=== PATIENT | female | born 1965 | race Caucasian/White ===

== ENCOUNTER 2019-05-07 09:46 | Emergency (ER) | payer BC ==
--- NOTE | 2019-05-07 11:39 | EDM.PDOCBH ---
ED HPI GENERAL MEDICAL PROBLEM - General Chief Complaint: Behavioral/Psych Stated Complaint: MENTAL EVAL Time Seen by Provider: 05/07/19 11:05 Source of Information: Reports: Patient, RN Notes Reviewed History Limitations: Reports: No Limitations - History of Present Illness INITIAL COMMENTS - FREE TEXT/NARRATIVE: Patient is a 54-year-old female who presents to the ED for a mental health evaluation. The patient notes she has a history of depression, and is on Lexapro, which has recently been increased to 20 mg daily, roughly 4 weeks ago. The patient relates that she has been under an immense amount of stress from work, and life. She states that she lost her suddenly due to a heart attack last year, and has recently lost her father in the past month or 2. 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 She realizes that she is failing at her job, and she states that something needs to break, and the job is the only thing that can go to help keep her from a mental break. She does have a psychologist that she works with. She states that she does have some weight loss, but this is intentional due to eating healthier, she states that she is sleeping well, she denies any suicidal thoughts or plan, she does not have any auditory or visual hallucinations or homicidal ideations. She denies any other sick-like symptoms. States she is in decent health, and is also getting her blood pressure under control. - Related Data Allergies Allergy/AdvReac Type Severity Reaction Status Date / Time No Known Allergies Allergy Verified 05/07/19 10:29 Home Meds: Home Meds Enalapril [Vasotec] 20 mg PO DAILY 05/07/19 [History] Escitalopram [Lexapro] 20 mg PO DAILY 05/07/19 [History] Pramipexole [Mirapex] 0.5 mg PO BEDTIME 05/07/19 [History] Past Medical History HEENT History: Reports: Impaired Vision Cardiovascular History: Reports: Hypertension Psychiatric History: Reports: Depression Social & Family History - Tobacco Use Smoking Status *Q: Never Smoker ED ROS GENERAL - Review of Systems Review Of Systems: See Below Constitutional: Denies: Fever, Chills Respiratory: Denies: Shortness of Breath Cardiovascular: Denies: Chest Pain GI/Abdominal: Denies: Abdominal Pain, Nausea, Vomiting Neurological: Denies: Headache Psychiatric: Reports: Depression. Denies: Hallucinations, Homicidal Ideation, Mood Lability, Suicidal Ideation ED EXAM, BEHAVIORAL HEALTH - Physical Exam Exam: See Below Exam Limited By: No Limitations General Appearance: Alert, WD/WN, No Apparent Distress Eye Exam: Bilateral Eye: EOMI, Normal Inspection, PERRL Ears: Normal External Exam Nose: Normal Inspection Throat/Mouth: Normal Inspection, Normal Lips, Normal Teeth, Normal Gums, Normal Oropharynx, Normal Voice, No Airway Compromise Head: Atraumatic, Normocephalic Neck: Normal Inspection Respiratory/Chest: No Respiratory Distress, Lungs Clear, Normal Breath Sounds, No Accessory Muscle Use, Chest Non-Tender Cardiovascular: Normal Peripheral Pulses, Regular Rate, Rhythm, No Edema, No Murmur GI/Abdominal: Normal Bowel Sounds, Soft, Non-Tender, No Distention, No Mass Extremities: Normal Inspection, Normal Capillary Refill Neurological: Alert, Normal Mood/Affect, Normal Cognition, Normal Gait, Normal Reflexes, No Motor/Sensory Deficits, Oriented x 3 Psychiatric: Alert, Normal Affect, Normal Cognition, Normal Mood, Oriented, Depressed Mood, Tearful (when talking about the deaths of her /father). No: Flat Affect, Homicidal Thoughts, Moravian Delusions, Suicidal Plan, Suicidal Thoughts, Tangential Thoughts, Auditory Hallucinations, Visual Hallucinations, Pressured Speech, Threatening Behavior Skin Exam: Warm, Dry, Intact, Normal color, No rash COURSE, BEHAVIORAL HEALTH COMP - Course Vital Signs: Last Vital Signs Temp 97.9 F 05/07/19 10:26 Pulse 90 05/07/19 10:26 Resp 16 05/07/19 10:26 BP 159/98 H 05/07/19 10:26 Pulse Ox 98 05/07/19 10:26 Discharge vs Psych Eval/Treatment:: 05/07/19 11:33 Patient presents to the ER for a mental health evaluation. Patient has no symptoms other than depression. She is sleeping well, she has been losing weight, intentionally, she states she is eating healthier. Due to the patient's story, and recounted history, I do believe she is suffering from increased mental stress at this time. I will provide her with a note for an extended leave of absence from work, so she cannot try to get her affairs in order. She will need to be reevaluated by primary care and her psychologist before she can be deemed fit to return to work. Departure - Departure Time of Disposition: 11:35 Disposition: Home, Self-Care 01 Condition: Fair Clinical Impression: Depressive disorder - Discharge Information *PRESCRIPTION DRUG MONITORING PROGRAM REVIEWED*: No *COPY OF PRESCRIPTION DRUG MONITORING REPORT IN PATIENT RIMMA: No Instructions: Living With Depression Referrals: Dmitry Ogden MD [Primary Care Provider] - Forms: ED Department Discharge, ED Return to Work/School Form Additional Instructions: You were evaluated in the ER today regarding a mental health evaluation. You are not suicidal, or homicidal. You are having trouble coping with your regular daily activities and work related issues. A work release was given to you, to help facilitate your ARGELIA. Recommend that you work closely with your primary care, and psychologist/psychiatrist, to help get your mental health back in check. In order to go back to work, you will need to be released by your primary care and psychiatrist when they believe your fit for work again. Please return to the ER at any time if your symptoms change or worsen.
== END 2019-05-07 12:00 | disposition home or self-care (01) ==
LOC: JD.ED 09:46
DX: F32.9 Major depressive disorder, single episode, unspecified (principal); I10 Essential (primary) hypertension; Z79.899 Other long term (current) drug therapy
CPT/HCPCS: 99282

== ENCOUNTER 2020-09-26 16:08 | Emergency (ER) | payer BC, OTHER ==
--- NOTE | 2020-09-26 16:31 | EDM.PDOC ---
ED HPI GENERAL MEDICAL PROBLEM - General Chief Complaint: Cardiovascular Problem Stated Complaint: HIGH BLOOD PRESSURE Time Seen by Provider: 09/26/20 16:31 Source of Information: Reports: Patient History Limitations: Reports: No Limitations - History of Present Illness INITIAL COMMENTS - FREE TEXT/NARRATIVE: 55-year-old female presents to the ED due to a headache associated with very high blood pressure. [place] when she started to feel unwell. Patient has a primary history of hypertension and is controlled primarily with Vasotec 20 mg once daily. She reports that she was started on several different antihypertensive medications which she found intolerable particularly all of the diuretics particularly the thiazide diuretics. She does states her headache is currently a 6-7 out of 10 and is generalized in both frontal cortices and temporal scalp scalp and behind her eyes. Associated mild nausea. She denies any visual acuity changes. Denies any problems with her gait. Blood pressure at the cabin was 232/114. Initial blood pressure here was 232/121. States she has had occasional spikes of blood pressure this high in the past. She does not know she is ever underwent any investigations for secondary causes of hypertension such as pheochromocytoma. She is concerned at present that she is hypothyroid as many of her siblings and her mother and aunts are hypertensive. She states she is cold all the time. She has been putting on weight. She feels her skin is belt conveyor drier and scalier than normal. She is losing some hair. She has not taken any analgesic for her headache. Onset: Today Duration: Hour(s): (With a mild headache this morning.), Constant, Getting Worse Location: Reports: Generalized (Identified very high blood pressure earlier this afternoon which precipitated her to drive in from the [place] to [employer] or [place].) Quality: Reports: Ache, Throbbing (Headache), Other Severity: Moderate (Pounding. 7-8 out of 10.) Improves with: Reports: None Worsens with: Reports: Movement Context: Reports: Other. Denies: Activity, Exercise, Lifting, Sick Contact, Trauma Associated Symptoms: Reports: Headaches, Loss of Appetite, Malaise, Nausea/Vomiting. Denies: Confusion (Spontaneous occurrence gradual.), Chest Pain, Cough, cough w sputum, Diaphoresis, Fever/Chills, Rash, Seizure, Shortness of Breath, Syncope (Mild nausea associate with a headache.), Weakness Treatments RECOVERER: Reports: Other (see below) (Only her regular medications.) Headache Pain Score (Numeric/FACES): 7 - Related Data Allergies Allergy/AdvReac Type Severity Reaction Status Date / Time furosemide [From Lasix] Allergy Diarrhea Verified 09/26/20 16:13 Home Meds: Home Meds Enalapril [Vasotec] 20 mg PO DAILY 05/07/19 [History] Pramipexole [Mirapex] 0.5 mg PO BEDTIME 05/07/19 [History] Glycopyrrolate/Formoterol Fum [Bevespi Aerosphere Inhaler] 2 puff INH BID 09/26/20 [History] Montelukast Sodium [Singulair] 10 mg PO BEDTIME 09/26/20 [History] amLODIPine [Norvasc] 5 mg PO DAILY #15 tab 09/26/20 [Rx] Past Medical History HEENT History: Reports: Impaired Vision, Sinusitis Cardiovascular History: Reports: Hypertension Respiratory History: Reports: Asthma Gastrointestinal History: Reports: Chronic Constipation Genitourinary History: Reports: None [employer] RECONDITIONING History: Reports: Musculoskeletal History: Reports: Other (See Below) Other Musculoskeletal History: disc replaced in neck Neurological History: Reports: None Psychiatric History: Reports: Depression Endocrine/Metabolic History: Reports: None Hematologic History: Reports: None Immunologic History: Reports: None Oncologic (Cancer) History: Reports: None Dermatologic History: Reports: None - Infectious Disease History Infectious Disease History: Reports: Chicken Pox - Past Surgical History Head Surgeries/Procedures: Reports: None Female Surgical History: Reports: Hysterectomy Social & Family History - Family History Family Medical History: No Pertinent Family History Cardiac: Reports: CAD, [place] Neurological: Reports: CVA Oncologic: Reports: Colon - Tobacco Use Tobacco Use Status *Q: Never Tobacco User - Caffeine Use Caffeine Use: Reports: Coffee - Recreational Drug Use Recreational Drug Use: No - Living Situation & Occupation Living situation: Reports: Single Occupation: Employed ED ROS GENERAL - Review of Systems Review Of Systems: See Below Constitutional: Reports: Malaise, Fatigue, Decreased Appetite. Denies: Fever, Chills HEENT: Reports: Glasses (Reports that she does have impaired vision.), Other Respiratory: Reports: Shortness of Breath. Denies: Wheezing, Pleuritic Chest Pain, Cough, Sputum (On exertion at times.), Hemoptysis Cardiovascular: Reports: Blood Pressure Problem, Dyspnea on Exertion, Edema (Occasional lower extremity edema.). Denies: Chest Pain, Claudication, Ligh theadedness, Orthopnea, Palpitations (Occasionally.) Endocrine: Reports: Fatigue GI/Abdominal: Reports: Constipation (L.), Decreased Appetite (Day.) : Reports: No Symptoms Musculoskeletal: Reports: Joint Pain (Knees hips low back neck at times) Skin: Reports: Other (She appreciates skin is been kind of dry and scaly lately. Appreciates mild hair loss.) Neurological: Reports: Headache. Denies: Confusion, Dizziness, Paresthesia, Pre-Existing Deficit, Seizure, Syncope, Tremors, Trouble Speaking, Difficulty Walking, Weakness, Change in Speech, Gait Disturbance, Other Psychiatric: Reports: No Symptoms Hematologic/Lymphatic: Reports: No Symptoms Immunologic: Reports: No Symptoms ED EXAM, GENERAL - Physical Exam Exam: See Below Exam Limited By: No Limitations General Appearance: Alert, WD/WN, No Apparent Distress, Other (Temperature is 36.2 degrees. Heart rate 66 and sinus respiratory of 18 with pulse oximetry of 98% on room air BP initially was 232/121. It subsequently came down to 224/116.) Eye Exam: Bilateral Eye: A-V [place] (Thought there was mild AV nicking bilaterally. No papilledema), Normal Fundi, Normal Inspection (No scleral icterus or blepharal pallor.), PERRL Throat/Mouth: Normal Inspection, Normal Lips, Normal Teeth, Normal Oropharynx Head: Atraumatic, Normocephalic Neck: Normal Inspection, Supple, Non-Tender, Full Range of Motion, Thyromegaly (A palpable right lower lobe of her thyroid on examination no nodules appreciated). No: Carotid Bruit, Lymphadenopathy (L), Lymphadenopathy (R) Respiratory/Chest: No Respiratory Distress, Lungs Clear, Normal Breath Sounds, No Accessory Muscle Use Cardiovascular: Normal Peripheral Pulses, Regular Rate, Rhythm, No Edema, No Gallop, No JVD, No Murmur, No Rub Peripheral Pulses: 2+: Posterior Tibial (L), Posterior Tibial (R), Dorsalis Pedis (L), Dorsalis Pedis (R), 3+: Carotid (L), Carotid (R) GI/Abdominal: Normal Bowel Sounds, Soft, Non-Tender, No Organomegaly, No Mass, Pelvis Stable, Other (Mildly obese.). No: Guarding, Rigid, Rebound Back Exam: Normal Inspection, Full Range of Motion. No: CVA Tenderness (L), CVA Tenderness (R) Extremities: Normal Inspection, Normal Range of Motion, Non-Tender, No Pedal Edema Neurological: Alert, Oriented, CN II-XII Intact, Normal Cognition, Normal Gait Psychiatric: Normal Affect, Normal Mood Skin Exam: Warm, Dry, Intact, Normal Color, No Rash #1 Interpretation EKG Date: 09/26/20 Time: 17:20 Rhythm: NSR Rate (Beats/Min): 70 Corder: Normal P-Wave: Enlarged (Left atrial hypertrophy) QRS: Other (Early R wave transition consider septal hypertrophy pattern.) ST-T: Other (Initial poor R wave progression T wave inversion V1 nonspecific finding) EKG Interpretation Comments: Borderline ECG Course - Vital Signs Last Recorded V/S: Last Vital Signs Temp 36.2 C 09/26/20 16:19 Pulse 71 09/26/20 18:09 Resp 18 09/26/20 17:30 BP 162/86 H 09/26/20 18:09 Pulse Ox 100 09/26/20 17:30 - Orders/Labs/Meds Orders: Active Orders 24 hr Category Date Time Status EKG Documentation Completion [RC] STAT Care 09/26/20 17:05 Active Peripheral IV Care [RC] . DIRECTED Care 09/26/20 16:41 Active FREE T3 [REF] Stat Lab 09/26/20 16:50 Received Sodium Chloride 0.9% [Saline Flush] Med 09/26/20 16:40 Active 10 ml FLUSH ASDIRECTED PRN Peripheral IV Insertion Adult [OM.PC] Stat Oth 09/26/20 16:41 Ordered Medication Orders Sodium Chloride (Sodium Chloride 0.9% 10 Ml Syringe) 10 ml FLUSH ASDIRECTED PRN PRN Reason: Keep Vein Open Last Admin: 09/26/20 17:03 Dose: 10 ml Documented by: CONCHA Labs: Laboratory Tests 09/26/20 09/26/20 09/26/20 Range/Units 16:50 16:50 16:55 WBC 7.02 (3.98-10.04) K/mm3 RBC 4.52 (3.98-5.22) M/mm3 Hgb 13.9 (11.2-15.7) gm/dl Hct 41.7 (34.1-44.9) % MCV 92.3 (79.4-94.8) fl MCH 30.8 (25.6-32.2) pg MCHC 33.3 (32.2-35.5) g/dl RDW Std Deviation 42.9 (36.4-46.3) fL Plt Count 235 (182-369) K/mm3 MPV 11.0 (9.4-12.3) fl Neut % (Auto) 58.2 (34.0-71.1) % Lymph % (Auto) 29.3 (19.3-51.7) % [place] % (Auto) 8.0 (4.7-12.5) % Eos % (Auto) 3.7 (0.7-5.8) Baso % (Auto) 0.7 (0.1-1.2) % Neut # (Auto) 4.08 (1.56-6.13) K/mm3 Lymph # (Auto) 2.06 (1.18-3.74) K/mm3 Kinney # (Auto) 0.56 H (0.24-0.36) K/mm3 Eos # (Auto) 0.26 (0.04-0.36) K/mm3 Baso # (Auto) 0.05 (0.01-0.08) K/mm3 Sodium 143 (136-145) mEq/L Potassium 4.0 (3.5-5.1) mEq/L Chloride 105 (98-107) mEq/L Carbon Dioxide 29 (21-32) mEq/L Anion Gap 13.0 (5-15) BUN 13 (7-18) mg/dL Creatinine 0.8 (0.55-1.02) mg/dL Est Cr Clr Drug Dosing 71.50 mL/min Estimated GFR (MDRD) > 60 (>60) mL/min BUN/Creatinine Ratio 16.3 (14-18) Glucose 86 (74-106) mg/dL Calcium 9.8 (8.5-10.1) mg/dL Total Bilirubin 0.5 (0.2-1.0) mg/dL AST 21 (15-37) U/L ALT 32 (14-59) U/L Alkaline Phosphatase 103 (46-116) U/L Total Protein 7.5 (6.4-8.2) g/dl Albumin 4.0 (3.4-5.0) g/dl Globulin 3.5 gm/dL Albumin/Globulin Ratio 1.1 (1-2) Free T4 1.02 (0.76-1.46) ng/dL TSH 3rd Generation 2.210 (0.358-3.74) uIU/mL Urine Color Yellow (Yellow) Urine Appearance Clear (Clear) Urine pH 7.0 (5.0-8.0) Ur Specific [place] 1.025 (1.005-1.030) Urine Protein Negative (Negative) Urine Glucose (UA) Negative (Negative) Urine Ketones Negative (Negative) Urine Occult Blood Negative (Negative) Urine Nitrite Negative (Negative) Urine Bilirubin Negative (Negative) Urine Urobilinogen 0.2 (0.2-1.0) Ur Leukocyte Esterase Negative (Negative) Urine RBC 0-5 (0-5) /hpf Urine WBC 0-5 (0-5) /hpf Ur Squamous Epith Cells 0-5 (0-5) /hpf Urine Bacteria Few (FEW) /hpf Urine Mucus Not seen (FEW) /hpf Meds: Medications Generic Name Dose Route Start Last Admin Trade Name Freq PRN Reason Stop Dose Admin Sodium Chloride 10 ml 09/26/20 16:40 09/26/20 17:03 Sodium Chloride 0.9% 10 Ml Syringe FLUSH 10 ml ASDIRECTED PRN Administration Keep Vein Open Discontinued Medications Generic Name Dose Route Start Last Admin Trade Name Freq PRN Reason Stop Dose Admin Amlodipine Besylate 10 mg 09/26/20 16:42 09/26/20 17:02 Amlodipine 10 Mg Tab PO 09/26/20 16:43 10 mg ONETIME ONE Administration Hydromorphone HCl 0.5 mg 09/26/20 17:54 09/26/20 18:30 Hydromorphone 0.5 Mg/0.5 Ml Syringe IVPUSH 09/26/20 17:55 0.5 mg ONETIME ONE Administration Labetalol HCl 20 mg 09/26/20 16:41 09/26/20 17:05 Labetalol 100 Mg/20 Ml Mdv IVPUSH 09/26/20 16:42 20 mg ONETIME ONE Administration Protocol Ondansetron HCl 4 mg 09/26/20 17:54 09/26/20 18:28 Ondansetron 4 Mg/2 Ml Sdv IVPUSH 09/26/20 17:55 4 mg ONETIME ONE Administration - Radiology Interpretation Free Text/Narrative:: 55-year-old female presents to the ED with complaints of markedly elevated blood pressure appreciated earlier this [place]c. She reports she had a mild headache this morning and it did seem to worsen as the day went on. Blood pressure at the cabin was 232/116. Initial blood pressure here was 232/123. She reports she has had intermittent elevated blood pressure recordings. They are not always associated with development of a headache. She is on enalapril 20 mg daily for blood pressure control for the last 2 to 3 years. She has many signs and symptoms of hypothyroidism on review of systems. Neuro exam is completely normal. There is no papilledema but I felt there was some mild AV nicking bilaterally. Plan she will have ECG done to look for cardiomegaly. She will have a urinalysis and routine labs performed including TSH and free T4. Peripheral IV or saline lock started. She will be given labetalol 20 mg IV. She will also be given amlodipine 10 mg orally. - Re-Assessments/Exams Free Text/Narrative Re-Assessment/Exam: 09/26/20 17:28 Blood pressure is currently 174/97. Heart rate is 69 and sinus. O2 sats 100%. 09/26/20 17:50 Blood pressure currently is 170/94. Ports her headache is still a 6 out of 10. I am going to give her Dilaudid 0.5 mg IV with Zofran 4 mg IV for headache relief. 09/26/20 17:56 White count is normal at 7.02. Auto differential shows 58% neutrophils. Hemoglobin is 13.9 with hematocrit of 41.7. MCV is normal at 92.3. Platelet count normal at 235,000. His sodium is 143 with a potassium of 4.0. Chloride 105 with a bicarb of 29. Anion gap is 13.0. BUN is 13 with a creatinine of 0.8. GFR is greater than 60. Glucose is 86 with a calcium of 9.8. Liver function normal. Total protein is 7.5 with an albumin fraction of 4.0. Free T4 is 1.02 and TSH is normal at 2.210 .urinalysis is completely normal with no proteinuria. 09/26/20 18:22: I went back to ask her about how her headache was doing after the Dilaudid 0.5 mg and Zofran 4 mg but she has not yet received medication. Blood pressures remained stable at 160/83. 09/26/20 18:44 Blood pressure currently is 164/83. Patient has an appointment to see Dr. Ogden in clinic tomorrow. I was going to discontinue her enalapril and place her on valsartan 320mg daily but she just filled her prescription for the enalapril. I will therefore add amlodipine 5 mg once daily at bedtime for blood pressure control. I will only give her [address] Ogden may want to change her prescription otherwise. 09/26/20 19:35 still has some mild pressure in her head but not a significant headache. Neuro exam once again is completely normal. Blood pressure at this time is down to 147/85. She will therefore be discharged back to home. Departure - Departure Time of Disposition: 19:35 Disposition: Home, Self-Care 01 Reason for Transfer *Q: Other Condition: Fair Clinical Impression: Uncontrolled stage 2 hypertension Prescriptions: amLODIPine [Norvasc] 5 mg PO DAILY #15 tab Instructions: Hypertension, Adult, [id number], Managing Your Hypertension Referrals: Dmitry Ogden MD [Primary Care Provider] - Forms: ED Department Discharge Additional Instructions: Evaluation in the emergency room today in regards to markedly elevated blood pressure at 232/123 on initial presentation to the ED. 15 minutes later the blood pressure remained elevated at 224/116. We would like your blood pressure to be less than 140 on the top and less than 85 on the bottom number. You therefore received intravenous medication labetalol 20 mg IV which did drop your blood pressure into the 170s over 90 initially. You also were given amlodipine 10 mg by mouth at the same time. Routine labs were performed including thyroid function studies since you had many signs and symptoms of underactive thyroid gland. All the lab tests proved to be normal as did the urinalysis. Your thyroid function studies are also normal. I will give you copy of his of these to provide to Dr. Ogden tomorrow. Since you just got a new prescription of your Vasotec my suggestion is to add 5 mg of amlodipine to your hypertension or blood pressure treatment program taking this at bedtime starting tonight. You were given a small dose of Dilaudid 0.5 mg with Zofran 4 mg IV for headache and mild nausea relief while in the ED. Follow up with Dr. Ogden in clinic tomorrow as planned. Sepsis Event Note (ED) - Evaluation Sepsis Screening Result: No Definite Risk - Focused Exam Vital Signs: Vital Signs Temp Pulse Resp BP BP Pulse Ox 09/26/20 18:09 71 162/86 H 09/26/20 17:30 85 18 172/92 H 100 09/26/20 17:02 210/110 H 09/26/20 16:19 36.2 C 66 18 232/121 H 98 - My Orders Last 24 Hours: My Active Orders 09/26/20 16:40 Sodium Chloride 0.9% [Saline Flush] 10 ml FLUSH ASDIRECTED PRN 09/26/20 16:41 Peripheral IV Care [RC] . DIRECTED Peripheral IV Insertion Adult [OM.PC] Stat 09/26/20 16:50 FREE T3 [REF] Stat 09/26/20 17:05 EKG Documentation Completion [RC] STAT - Assessment/Plan Last 24 Hours: My Active Orders 09/26/20 16:40 Sodium Chloride 0.9% [Saline Flush] 10 ml FLUSH ASDIRECTED PRN 09/26/20 16:41 Peripheral IV Care [RC] . DIRECTED Peripheral IV Insertion Adult [OM.PC] Stat 09/26/20 16:50 FREE T3 [REF] Stat 09/26/20 17:05 EKG Documentation Completion [RC] STAT
[2020-09-26] MEDS ORDERED: Sodium Chloride 0.9% 10 ML Syringe FLUSH PRN (16:40)
[2020-09-26] MEDS ORDERED: Labetalol 100 MG/20 ML MDV IVPUSH ONE (16:41)
[2020-09-26] MEDS ORDERED: amLODIPine 10 MG Tab PO ONE (16:42)
[2020-09-26] MEDS ORDERED: HYDROmorphone 0.5 MG/0.5 ML Syringe IVPUSH ONE (17:54)
[2020-09-26] MEDS ORDERED: Ondansetron 4 MG/2 ML SDV IVPUSH ONE (17:54)
== END 2020-09-26 20:02 | disposition home or self-care (01) ==
LOC: JD.ED 16:08
DX: I10 Essential (primary) hypertension (principal); Z88.8 Allergy status to other drugs, medicaments and biological substances
CPT/HCPCS: 36415; 80053; 81001; 84439; 84443; 84481; 85025; 93005; 96374; 96375; 99283; A9270; J1170; J2405; J3490; 93010; 99284